=== PATIENT | female | born 1955 | race Caucasian/White ===

== ENCOUNTER 2018-09-10 17:54 | Observation (INO) | payer MEDICARE, OTHER ==
[~2018-09-10] VITALS: Ht 157.5 cm; Wt 84.0 kg
[2018-09-10] MEDS ORDERED: BUDE6HFA INH (19:09)
[2018-09-10] MEDS ORDERED: MAGOXI400 PO (19:11)
[2018-09-10] MEDS ORDERED: Robaxin-750750 MG PO (19:11)
[2018-09-10] MEDS ORDERED: Lopressor 25 mg25 MG PO (19:11)
[2018-09-10] MEDS ORDERED: MONT10T PO (19:12)
[2018-09-10] MEDS ORDERED: OXYC5 PO (19:12)
[2018-09-10] MEDS ORDERED: PRED10 PO (19:12)
[2018-09-10] MEDS ORDERED: SPIR25 PO (19:12)
[2018-09-10] MEDS ORDERED: BENADRYL25 MG PO (19:13)
[2018-09-10 19:17] LABS: BASOPHILS ABSOLUTE AUTO 0.02 K/mm3 (0.00-0.23); BASOPHILS PERCENT AUTO 0 % (0-2); EOSINOPHILS ABSOLUTE AUTO 0.01 K/mm3 (0.00-0.68); EOSINOPHILS PERCENT AUTO 0 % (0-6); Hemoglobin 8.9 g/dL (11.5-16.0); IMMATURE GRAN ABSOLUTE AUTO 0.09 K/mm3 (0.00-0.10); IMMATURE GRAN PERCENT AUTO 1 % (0-1); LYMPHOCYTES ABSOLUTE AUTO 1.27 K/mm3 (0.84-5.20); LYMPHOCYTES PERCENT AUTO 16 % (21-46); MONOCYTES ABSOLUTE AUTO 0.39 K/mm3 (0.16-1.47); MONOCYTES PERCENT AUTO 5 % (4-13); Mean Corpuscular HGB 25.2 pg (26.0-34.0); Mean Corpuscular HGB Conc 28.7 g/dL (31.5-36.5); Mean Corpuscular Volume 88 fL (80-100); NEUTROPHILS ABSOLUTE AUTO 5.99 K/mm3 (1.96-9.15); NEUTROPHILS PERCENT AUTO 77 % (41-73); NRBC ABSOLUTE 0.02 K/mm3 (0.00-0.02); NRBC Auto 0.3 /100 WBC (0.0-0.2); Platelet Count 316 K/mm3 (150-400); RDW Coefficient Variation 17.8 % (11.7-14.2); Red Blood Cell Count 3.53 M/mm3 (3.80-5.20); White Blood Cell Count 7.77 K/mm3 (4.00-11.30)
[2018-09-10 19:32] LABS: International Normalized Ratio 2.58
[2018-09-10 19:40] LABS: Prothrombin Time Results 25.1 Sec (9.7-11.5)
[2018-09-10 19:46] LABS: Alanine Aminotransfer (ALT/SGP 44 U/L (12-78); Albumin, Blood 2.8 g/dL (3.4-5.0); Albumin/Globulin Ratio 0.9 (0.8-1.8); Alk Phos 96 U/L (50-136); Anion Gap 5 mmol/L (6-16); Aspartate Aminotrans (AST/SGOT 31 U/L (12-37); Bilirubin, Total 0.3 mg/dL (0.1-1.0); Blood Urea Nitrogen 8 mg/dL (8-24); Bun/Creatinine Ratio 13.4 (12.0-20.0); CO2, Blood 31 mmol/L (21-32); Calcium, Blood 8.7 mg/dL (8.5-10.1); Chloride, Blood 104 mmol/L (98-108); Glomerular Filtration Rate >60 (60-); Glucose, Blood 91 mg/dL (70-99); Potassium, Blood 3.6 mmol/L (3.5-5.5); Sodium, Blood 140 mmol/L (136-145); Total Protein, Blood 5.8 g/dL (6.4-8.2)
[2018-09-10] MEDS ORDERED: ALBU3IS INH (20:52)
[2018-09-10] MEDS ORDERED: LIDO700A20 TOP (20:52)
[2018-09-10] MEDS ORDERED: Milk Of Ma400 MG/5 M PO (20:53)
[2018-09-10] MEDS ORDERED: Mirtazapine7.5 MG PO (20:54)
[2018-09-10] MEDS ORDERED: NICORELIEF PO (20:55)
[2018-09-10] MEDS ORDERED: OMEPRAZOLE MAGN20 MG PO (23:05)
[2018-09-11 05:21] LABS: BASOPHILS ABSOLUTE AUTO 0.06 K/mm3 (0.00-0.23); BASOPHILS PERCENT AUTO 1 % (0-2); EOSINOPHILS ABSOLUTE AUTO 0.11 K/mm3 (0.00-0.68); EOSINOPHILS PERCENT AUTO 1 % (0-6); Hemoglobin 9.3 g/dL (11.5-16.0); IMMATURE GRAN ABSOLUTE AUTO 0.11 K/mm3 (0.00-0.10); IMMATURE GRAN PERCENT AUTO 1 % (0-1); LYMPHOCYTES ABSOLUTE AUTO 1.43 K/mm3 (0.84-5.20); LYMPHOCYTES PERCENT AUTO 18 % (21-46); MONOCYTES ABSOLUTE AUTO 0.58 K/mm3 (0.16-1.47); MONOCYTES PERCENT AUTO 7 % (4-13); Mean Corpuscular HGB 25.9 pg (26.0-34.0); Mean Corpuscular HGB Conc 29.1 g/dL (31.5-36.5); Mean Corpuscular Volume 89 fL (80-100); Mean Platelet Volume 9.8 fL (9.1-12.4); NEUTROPHILS PERCENT AUTO 71 % (41-73); NRBC ABSOLUTE 0.02 K/mm3 (0.00-0.02); NRBC Auto 0.3 /100 WBC (0.0-0.2); Platelet Count 319 K/mm3 (150-400); RDW Coefficient Variation 17.6 % (11.7-14.2); RDW Standard Deviation 57.6 fL (35.1-46.3); Red Blood Cell Count 3.59 M/mm3 (3.80-5.20); White Blood Cell Count 7.89 K/mm3 (4.00-11.30)
[2018-09-11 05:33] LABS: International Normalized Ratio 1.89
[2018-09-11 06:06] LABS: Alanine Aminotransfer (ALT/SGP 49 U/L (12-78); Albumin, Blood 2.8 g/dL (3.4-5.0); Alk Phos 98 U/L (50-136); Anion Gap 9 mmol/L (6-16); Aspartate Aminotrans (AST/SGOT 38 U/L (12-37); Bilirubin, Total 0.4 mg/dL (0.1-1.0); Blood Urea Nitrogen 8 mg/dL (8-24); Bun/Creatinine Ratio 12.1 (12.0-20.0); CO2, Blood 28 mmol/L (21-32); Calcium, Blood 8.4 mg/dL (8.5-10.1); Chloride, Blood 105 mmol/L (98-108); Creatinine, Blood 0.66 mg/dL (0.40-1.00); Globulin, Blood 2.9 g/dL (2.2-4.0); Glomerular Filtration Rate >60 (60-); Glucose, Blood 75 mg/dL (70-99); Potassium, Blood 3.1 mmol/L (3.5-5.5); Sodium, Blood 142 mmol/L (136-145); Total Protein, Blood 5.7 g/dL (6.4-8.2)
--- NOTE | 2018-09-11 06:13 | NUR ---
SHIFT SUMMARY PT ADMITTED LAST NIGHT FOR ESOPHAGEAL STRICTURE. SHE HAS BEEN AT [facility] FOR REHAB FOLLOWING MULTIPLE HOSPITALIZATIONS AND SURGERIES AND WAS ADMITTED AFTER COMPLAINING OF MULTIPLE DAYS OF DIFFICULTY SWALLOWING. SHE IS ABLE TO TAKE SMALL AMOUNTS OF CLEAR LIQUIDS WITHOUT CHOKING OR VOMITING. PT IS A&O, ABLE TO MAKE NEEDS KNOWN. DR. DOTY CONSULTED IN ED. PT HAS BEEN NPO SINCE MIDNIGHT IN PREP FOR PROCEDURE. SHE HAS A COLOSTOMY NEWLY PLACED IN JULY AND WOUND DEHISCENCE IN . THE WOUND HAD BEEN RECEIVING WET-TO-DRY DRESSINGS BID IN REHAB. PT ALSO HAD A DVT CONFIRMED IN HER LEFT ARM ON 09/06/18 AND IS ON COUMADIN FOR THAT. PT IS WEAK AND DECONDITIONED, REFUSED ANY ATTEMPT TO GET UP OUT OF BED, BUT DID ALLOW REPOSITIONING. 2L VIA NC, MAINTAINING SATS >90. WILL CTM UNTIL PASS TO NEXT SHIFT.
[2018-09-11 07:25] LABS: Prothrombin Time Results 18.9 Sec (9.7-11.5)
--- NOTE | 2018-09-11 11:09 | NUR ---
CHEST PAIN/ ANXIETY/ INCREASED ABD PAIN PT HAS BEEN INCREASINGLY ANXIOUS THIS AM RELATED TO INCREASED ABD PAIN AND FOUL ODOR WHICH APPEARS TO BE FROM HER ABD WOUND. PT STATES FOUL ODOR IS NEW. AT APPROXIMATELY 1000 STARTED RUBBING HER CHEST AREA AND PURSED LIP BREATHING. SHE ALSO REPORTED NAUSEA AND BEGAN DRY HEAVING. PT WAS ASSESSED FOR CHEST PAIN AND SOB. SHE REPORTED CHEST PAIN BUT DENIED SOB. STAT VS TAKEN BP 116/76, O2 SATURATION 97% ON RA, HR 80. THERMOGRAPH OPERATOR HARPAL NOTIFIED AND EKG COMPLETED. ATTEMPTED TO CONTACT DR. HUYNH X3 AT 1005, 1011, AND 1025. SPOKE WITH DR. HUYNH AT APPROXIMATELY 1025 REGARDING NEW SYMPTOMS. REQUESTED ORDER FOR CARDIAC ENZYMES AND PAIN MEDICATION. ORDER FOR 1 TIME DOSE OF MORPHINE RECIEVED. AWAITING DR. HUYNH TO REVIEW EKG AND SEE PATIENT. AT THIS TIME PT DENIES NAUSEA AND PAIN. ANXIETY APPEARS TO HAVE DECREASED. WILL CONTINUE TO MONITOR UNTIL REPORT TO ONCOMING RN.
--- NOTE | 2018-09-11 11:53 | NUR ---
DR. HUYNH NOTIFIED OF FOUL ODOR FROM ABD WOUND.
--- NOTE | 2018-09-11 19:26 | NUR ---
SHIFT SUMMARY PAIN HAS BEEN MANAGED WITH IV PAIN MEDICATION THIS SHIFT. PT HAS REFUSED TO GET OOB EVEN TO THE BSC, SHE REPORTS SHE FEELS WEAK. SHE HAS REPORTED A GENERAL UNWELL FEELING T/O THE DAY BUT CANNOT PINPOINT. PT'S WOUND HAS A FOUL ODOR; DR. HUYNH WAS NOTIFIED. ABD DRESSING WAS CHANGED. PT REQUIRES ASSISTANCE TO GET BOOSTED UP IN BED; SHE IS ABLE TO REPOSITION EASILY FROM SIDE TO SIDE. VSS. REPORT GIVEN TO REFUGIO DOSHI.
[2018-09-12 05:52] LABS: BASOPHILS ABSOLUTE AUTO 0.07 K/mm3 (0.00-0.23); BASOPHILS PERCENT AUTO 1 % (0-2); EOSINOPHILS PERCENT AUTO 2 % (0-6); Hematocrit 33.2 % (33.0-51.0); Hemoglobin 9.5 g/dL (11.5-16.0); IMMATURE GRAN ABSOLUTE AUTO 0.13 K/mm3 (0.00-0.10); IMMATURE GRAN PERCENT AUTO 1 % (0-1); LYMPHOCYTES ABSOLUTE AUTO 1.67 K/mm3 (0.84-5.20); LYMPHOCYTES PERCENT AUTO 16 % (21-46); MONOCYTES ABSOLUTE AUTO 0.65 K/mm3 (0.16-1.47); MONOCYTES PERCENT AUTO 6 % (4-13); Mean Corpuscular HGB 25.7 pg (26.0-34.0); Mean Corpuscular HGB Conc 28.6 g/dL (31.5-36.5); Mean Corpuscular Volume 90 fL (80-100); Mean Platelet Volume 9.8 fL (9.1-12.4); NEUTROPHILS ABSOLUTE AUTO 7.91 K/mm3 (1.96-9.15); NEUTROPHILS PERCENT AUTO 74 % (41-73); NRBC ABSOLUTE 0.04 K/mm3 (0.00-0.02); NRBC Auto 0.4 /100 WBC (0.0-0.2); Platelet Count 329 K/mm3 (150-400); RDW Coefficient Variation 17.8 % (11.7-14.2); RDW Standard Deviation 58.6 fL (35.1-46.3); Red Blood Cell Count 3.69 M/mm3 (3.80-5.20); White Blood Cell Count 10.63 K/mm3 (4.00-11.30)
[2018-09-12 06:04] LABS: International Normalized Ratio 1.27; Prothrombin Time Results 13.2 Sec (9.7-11.5)
[2018-09-12 06:14] LABS: Albumin, Blood 2.6 g/dL (3.4-5.0); Anion Gap 9 mmol/L (6-16); Blood Urea Nitrogen 8 mg/dL (8-24); Bun/Creatinine Ratio 11.5 (12.0-20.0); CO2, Blood 26 mmol/L (21-32); Calcium, Blood 8.4 mg/dL (8.5-10.1); Chloride, Blood 105 mmol/L (98-108); Glomerular Filtration Rate >60 (60-); Glucose, Blood 81 mg/dL (70-99); Phosphorus, Blood 3.5 mg/dL (2.5-4.9); Potassium, Blood 3.6 mmol/L (3.5-5.5); Sodium, Blood 140 mmol/L (136-145)
--- NOTE | 2018-09-12 13:07 | NUR ---
PT TRANSPORTED TO [facility]. AGREES WITH PLANNED PROCEDURE. LUNG SOUNDS CLEAR.
--- NOTE | 2018-09-12 13:53 | NUR ---
09/12/18 1353 Riana Smallwood PATIENT CONFIRMS NPO STATUS AND AGREES WITH SCHEDULED PROCEDURE. History, Chart, Medications and Allergies reviewed before start of procedure. MONITOR INTACT WITH CONTINUOUS PULSE OXIMETRY AND INTERMITTENT BP. O2 VIA N/C INTACT THROUGHOUT SEDATION/PROCEDURE. 3-LEAD EKG REVIEWED WITH PHYSICIAN PRIOR TO START OF PROCEDURE. DR. ALISHA JIMENEZ MAC.
--- NOTE | 2018-09-12 17:36 | NUR ---
DR. HUYNH NOTIFIED THAT DR. COULTER ROUNDED ON THE PATIENT AND FELT HER WOUND DID NOT LOOK INFECTED. WILL CONTINUE TO WITH DRESSING CHANGES PER ORDERS.
--- NOTE | 2018-09-12 19:39 | NUR ---
SHIFT SUMMARY PT HAD UPPER ENDOSCOPY TODAY. SHE REPORTS SHE STILL FEELS LIKE SHE IS HAVING DIFFICULTY SWALLOWING. SHE WORKED WITH THERAPY TODAY AND SAT AT THE EDGE OF THE BED. ABD DRESSING CHANGED X2 TODAY. ODOR FROM ABD WOUND HAS DECREASED. VSS. REPORT GIVEN TO MAIRA DOSHI.
[2018-09-13 06:08] LABS: BASOPHILS ABSOLUTE AUTO 0.05 K/mm3 (0.00-0.23); BASOPHILS PERCENT AUTO 1 % (0-2); EOSINOPHILS ABSOLUTE AUTO 0.18 K/mm3 (0.00-0.68); EOSINOPHILS PERCENT AUTO 2 % (0-6); Hematocrit 31.3 % (33.0-51.0); Hemoglobin 9.1 g/dL (11.5-16.0); IMMATURE GRAN PERCENT AUTO 1 % (0-1); LYMPHOCYTES ABSOLUTE AUTO 1.28 K/mm3 (0.84-5.20); LYMPHOCYTES PERCENT AUTO 15 % (21-46); MONOCYTES ABSOLUTE AUTO 0.61 K/mm3 (0.16-1.47); MONOCYTES PERCENT AUTO 7 % (4-13); Mean Corpuscular HGB 25.1 pg (26.0-34.0); Mean Corpuscular HGB Conc 29.1 g/dL (31.5-36.5); Mean Platelet Volume 9.8 fL (9.1-12.4); NEUTROPHILS ABSOLUTE AUTO 6.24 K/mm3 (1.96-9.15); NEUTROPHILS PERCENT AUTO 74 % (41-73); Platelet Count 327 K/mm3 (150-400); RDW Coefficient Variation 17.7 % (11.7-14.2); Red Blood Cell Count 3.63 M/mm3 (3.80-5.20); White Blood Cell Count 8.46 K/mm3 (4.00-11.30)
[2018-09-13 06:12] LABS: Mean Corpuscular Volume 86 fL (80-100)
--- NOTE | 2018-09-13 06:19 | NUR ---
SHIFT SUMMARY: PT C/O "THROAT NOT BEING ANYMORE OPEN", AND THAT THE "SURGERY DID NOT WORK". PT ALSO REPORTS THROAT PAIN LIKE A "SORE THROAT". OSTOMY TO LLQ; KERLEX DRESSING C/D/I. DRESSING CHANGES BID PER ORDERS. REG DIET c SMALL SIPS, PER PT, LIQUID IS ALL SHE CAN TOLERATE. US IN LAST NIGHT FOR DOPPLER OF BLE TO SEARCH FOR DVT'S, BILATERAL DVTS FOUND PER US. ADMINISTERED 10 MG OXYCODONE FOR PAIN 1X. WILL CONT TO MONITOR AND PROVIDE CARE UNTIL PRESUMED BY ONCOMING RN.
[2018-09-13 06:24] LABS: Anion Gap 7 mmol/L (6-16); Blood Urea Nitrogen 7 mg/dL (8-24); Bun/Creatinine Ratio 10.3 (12.0-20.0); CO2, Blood 28 mmol/L (21-32); Calcium, Blood 8.3 mg/dL (8.5-10.1); Chloride, Blood 103 mmol/L (98-108); Creatinine, Blood 0.68 mg/dL (0.40-1.00); Glomerular Filtration Rate >60 (60-); Glucose, Blood 87 mg/dL (70-99); Potassium, Blood 3.3 mmol/L (3.5-5.5); Sodium, Blood 138 mmol/L (136-145)
--- NOTE | 2018-09-13 07:00 | NUR ---
REPORT FROM MAIRA DOSHI. ASSUMED PT CARE.
--- NOTE | 2018-09-13 07:20 | NUR ---
ASSESSMENT CHARTED. PT C/O THROAT. ASKING FOR CHLOROSEPTIC SPRAY. INFORMED PT TO INFORM HOSPITALIST ON ROUNDS. PT STATES THAT "THEY HAVENT FIXED THE PROBLEM IM HERE FOR"
--- NOTE | 2018-09-13 08:30 | NUR ---
PT/OT TO ROOM TO WORK WITH PT. PT REFUSING TO GET UP. SITS AT EDGE OF BED. ARGUMETATIVE WITH THERAPIST RE CARE.
--- NOTE | 2018-09-13 09:19 | NUR ---
PT MEDICATED PER EMAR. PT STATES THAT WE ARENT PROVIDING HER NORMAL MEDS. STATES THAT SHE IS ON THINGS THAT SHE NORMALLY DOESNT TAKE AND WE ARENT GIVING THINGS THAT SHE USUALLY DOES. PT REFUSING MULT MEDS. PT REFUSING IV POTASSIUM "ITLL BLOW MY VEIN. I WANT THE LIQUID KIND"
--- NOTE | 2018-09-13 09:32 | NUR ---
PT MEDICATED WITH PAIN MEDS PER EMAR. NICORETTE GUM PROVIDED.
[2018-09-13] MEDS ORDERED: CITA20 PO (11:20)
[2018-09-13] MEDS ORDERED: WARF5 PO (11:22)
[2018-09-13] MEDS ORDERED: Thera-M1 EACH PO (11:24)
[2018-09-13] MEDS ORDERED: NYST100000 PO (11:27)
[2018-09-13] MEDS ORDERED: ADULT TUSS100 MG/5 M PO (11:29)
--- NOTE | 2018-09-13 11:54 | NUR ---
NICORETTE GUM PROVIDED TO PT. WOUND CARE TO ABD WOUND COMPLETE. NEW WET TO DRY DRESSING PLACED. PT BELLE WELL. DRESSING TO RIGHT LOWER LEG REMOVED PER PT REQUEST.
--- NOTE | 2018-09-13 13:15 | NUR ---
PT APPEARS TO BE SLEEPING. NADN. RESP EVEN AND NON LABORED.
--- NOTE | 2018-09-13 14:15 | NUR ---
THIS RN RECIEVED REPORT AND IS ASSUMING CARE OF PT AT THIS TIME.
--- NOTE | 2018-09-13 18:00 | NUR ---
SHIFT SUMMARY PT BEEN ASSISTED WITH ADL'S PRN. PT SAT ON SIDE OF BED AT TIMES. PT REFUSING CARE AT TIMES, ENC MOBILITY, SEE OTHER NOTES. PT USING CALL LIGHT APPR. PT BEEN MED FOR PAIN AND NICORETTE GUM. PT MOVING SELF IN BED WELL.
--- NOTE | 2018-09-14 00:30 | NUR ---
0030: ABD WOUND CARE COMPLETED AND PT TOW. DRESSING REMOVED, SKIN PREP APPLIED, MOISTENED KERLEX LOOSELY PACKED INTO OPEN ABD WOUND, COVERED WITH 4X4 GAUZE AND SMALL EXUDRY; SECURED WITH MEPIPORE TAPE.
[2018-09-14 04:55] LABS: Hematocrit 30.2 % (33.0-51.0); Hemoglobin 8.7 g/dL (11.5-16.0); Mean Corpuscular HGB Conc 28.8 g/dL (31.5-36.5); Mean Corpuscular Volume 87 fL (80-100); Mean Platelet Volume 9.8 fL (9.1-12.4); Platelet Count 288 K/mm3 (150-400); RDW Coefficient Variation 17.4 % (11.7-14.2); RDW Standard Deviation 54.9 fL (35.1-46.3); Red Blood Cell Count 3.48 M/mm3 (3.80-5.20); White Blood Cell Count 7.07 K/mm3 (4.00-11.30)
[2018-09-14 05:17] LABS: Percent Saturation 6.7 % (15.0-50.0)
[2018-09-14 05:22] LABS: Magnesium, Blood 1.8 mg/dL (1.6-2.4)
[2018-09-14 05:27] LABS: Anion Gap 7 mmol/L (6-16); Blood Urea Nitrogen 9 mg/dL (8-24); Bun/Creatinine Ratio 11.7 (12.0-20.0); CO2, Blood 29 mmol/L (21-32); Calcium, Blood 8.4 mg/dL (8.5-10.1); Chloride, Blood 104 mmol/L (98-108); Creatinine, Blood 0.77 mg/dL (0.40-1.00); Glomerular Filtration Rate >60 (60-); Glucose, Blood 101 mg/dL (70-99); Potassium, Blood 3.5 mmol/L (3.5-5.5); Sodium, Blood 140 mmol/L (136-145)
--- NOTE | 2018-09-14 06:26 | NUR ---
SUMMARY: POD 3 E[address] DILATION BY DR[address] DOTY. NO ACUTE CHANGES THIS SHIFT. VSS, AFEBRILE, PAIN WELL CONTROLLED WITH PO MEDS. DRESSING CHANGED PER ORDERS, PT TOW. CONTINUE SOFT DIET AND BOWEL CARE ORDERED.
--- NOTE | 2018-09-14 08:57 | NUR ---
DR HORTON HERE TO SEE PT.
--- NOTE | 2018-09-14 13:24 | NUR ---
DRESSING TO ABD CHANGED. PT TOLERATED WELL.
--- NOTE | 2018-09-14 19:30 | NUR ---
SHIFT SUMMARY PT BEEN EATING AND DRINKING WELL. PT VOIDING USING BEDPAN. PT BEEN MED FOR PAIN. DRESSING TO ABD CHANGED THIS AM. PT HAS SCAB TO RIGHT LOWER SMITH. PT REFUSED PAS, LEGS TO BE ELEVATED, REPOSITIONING ALTHOUGH PT HAS NO REDNESS TO BOTTOM AND IS MOVING WELL IN BED. PT SAT ON SIDE OF BED AT TIMES, MOBILITY ENCOURAGED.
[2018-09-15 05:21] LABS: International Normalized Ratio 1.14; Prothrombin Time Results 11.9 Sec (9.7-11.5)
--- NOTE | 2018-09-15 07:00 | NUR ---
REPORT FROM SUMMER RN. ASSUMED PT CARE.
--- NOTE | 2018-09-15 07:21 | NUR ---
PT RESTING IN POSITION OF COMFORT. LEEROY.
--- NOTE | 2018-09-15 08:15 | NUR ---
BREAKFAST TRAY PROVIDED. ASSESSMENT CHARTED. PT IN NO DISTRESS. ALERT AND ORIENTED. PT SITTING UP IN BED. STATES HER DIAPHRAGM FEELS TIGHT.
--- NOTE | 2018-09-15 08:50 | NUR ---
ASSISTED PT WITH BEDPAN. PERICARE DONE. NO BREAKDOWN TO BACK OR BUTTOCKS NOTED.
--- NOTE | 2018-09-15 09:15 | NUR ---
PT MEDICATED PER EMAR. PT REFUSED MULT SCHED AM MEDS. PT WOUND REDRESSED WITH WET TO DRY PER ORDERS. EXUDRY PLACED. PT BELLE WELL. LOTION APPLIED TO BACK PER PT REQUEST. REPOSITIONED PT ON 2 PILLOWS FOR COMFORT.
--- NOTE | 2018-09-15 09:20 | NUR ---
PT CONCERNED ABOUT IV, ATTEMPT TO FLUSH, SITE LEATKING. IV REMOVED. TIP INTACT. DRESSING PLACED.
--- NOTE | 2018-09-15 10:44 | NUR ---
PT RESTING IN POSITION OF COMFORT. LEEROY.
--- NOTE | 2018-09-15 11:47 | NUR ---
THERAPY TO ROOM TO WORK WITH PT.
--- NOTE | 2018-09-15 12:10 | NUR ---
ASSUMED CARE OF PT. PT VERY IRRITABLE AND REFUSING P.T. AT THIS TIME. STATES DOESN'T LIKE NOT HAVING AN EXACT TIME OF WHEN PT/RT ARE COMING. ALSO STATES OSTOMY IS LEAKING. DID COMPLETE OSTOMY CHANGE AND MIDLINE DRESSING CHANGE.
--- NOTE | 2018-09-15 12:56 | NUR ---
PHYSICAL THERAPY WAS ABLE TO WORK WITH PT. PT IS NOW IN CHAIR. CALL LIGHT IN REACH.
[2018-09-15] MEDS ORDERED: SPIR25 PO (15:58)
--- NOTE | 2018-09-15 17:22 | NUR ---
REPORT GIVEN TO NOLAN STEVENSON TO [facility].
== END 2018-09-15 17:54 ==
LOC: ER 17:54 → SURS 17:55
PROVIDERS: Emergency Medicine; Internal Medicine; Internal Medicine Gastroenterology; ADMIT Internal Medicine
PROC: 0D758ZZ Dilation of Esophagus, Via Natural or Artificial Opening Endoscopic (ICD-10-PCS; principal; 2018-09-12 09:30)
DX: K22.2 Esophageal obstruction (principal); K22.8 Other specified diseases of esophagus; I12.9 Hypertensive chronic kidney disease with stage 1 through stage 4 chronic kidney disease, or unspecified chronic kidney disease; N18.3 Chronic kidney disease, stage 3 (moderate); D63.1 Anemia in chronic kidney disease; E87.6 Hypokalemia; K21.9 Gastro-esophageal reflux disease without esophagitis; J44.9 Chronic obstructive pulmonary disease, unspecified; M54.9 Dorsalgia, unspecified; G89.29 Other chronic pain; R60.0 Localized edema; I89.0 Lymphedema, not elsewhere classified; Z88.1 Allergy status to other antibiotic agents; Z88.5 Allergy status to narcotic agent; Z79.899 Other long term (current) drug therapy; Z88.8 Allergy status to other drugs, medicaments and biological substances; E66.9 Obesity, unspecified; Z68.36 Body mass index [BMI] 36.0-36.9, adult; Z79.01 Long term (current) use of anticoagulants; Z74.09 Other reduced mobility
CPT/HCPCS: 36415; 74176; 80048; 80053; 80069; 82728; 83540; 83550; 83690; 83735; 85025; 85027; 85610; 85730; 93005; 93010; 93971; 94640; 94760; 96365; 96366; 96374-59; 96375; 96375-59; 96376; 97110; 97162; 97530; 99285-25; C9113; G0378; J2270; J3480; J7030; J7040; J7120